=== PATIENT | male | born 1955 | race Two or more races ===

== ENCOUNTER 2017-06-14 04:59 | Inpatient (IN) | payer OTHER ==
[~2017-06-14] VITALS: Ht 175.3 cm; Wt 95.3 kg
[2017-06-14] MEDS ORDERED: CARV3.122 PO (05:19)
[2017-06-14] MEDS ORDERED: LEVO88TA2 PO (05:19)
[2017-06-14] MEDS ORDERED: GABA600T2 PO (05:19)
[2017-06-14] MEDS ORDERED: FAMO-132 PO (05:19)
[2017-06-14] MEDS ORDERED: CHLO25TA2 PO (05:19)
[2017-06-14] MEDS ORDERED: ASPI81TA31 PO (05:19)
[2017-06-14 06:03] LABS: BASOPHILS # (AUTO) 0.1 K/uL (0.0-8.0); BASOPHILS % (AUTO) 0.6 % (0.0-2.0); EOSINOPHILS # (AUTO) 0.1 K/uL (0.0-0.7); EOSINOPHILS % (AUTO) 1.2 % (0.0-7.0); HEMATOCRIT 39.6 % (40-50); HEMOGLOBIN 13.6 G/DL (14.0-18.0); LYMPHOCYTES # (AUTO) 1.4 K/UL (0.8-4.8); LYMPHOCYTES % (AUTO) 14.2 % (20.5-51.5); MEAN CORPUSCULAR HEMOGLOBIN 29.8 UUG (27.0-31.0); MEAN CORPUSCULAR HGB CONC 34 g/dL (32.0-37.0); MEAN CORPUSCULAR VOLUME 86.9 FL (82.0-92.0); MONOCYTES # (AUTO) 0.5 K/UL (0.1-1.30); MONOCYTES % (AUTO) 5.2 % (0.0-11.0); NEUTROPHILS # (AUTO) 7.5 K/UL (1.8-8.9); NEUTROPHILS % (AUTO) 78.8 % (38.5-71.5); PLATELET COUNT (AUTO) 177 K/UL (150-450); RED BLOOD CELL COUNT(AUTO) 4.55 MIL/UL (4.7-6.1); WHITE BLOOD COUNT (AUTO) 9.6 K/UL (4.0-11.2)
--- NOTE | 2017-06-14 06:05 | NUR ---
Patient's laboratory data revealed his glucose as 80, which was decreased from the ACCUCHECK upon arrival. ERMD notified, orders received, half of a sandwich provided to patient.
[2017-06-14 06:07] LABS: POTASSIUM 3.8 mmol/L (3.5-5.1)
[2017-06-14 06:14] LABS: BILIRUBIN,DIRECT 0.2 mg/dL (0.0-0.2); BILIRUBIN,TOTAL 1.2 mg/dL (0.2-1.0); TOTAL PROTEIN, SERUM 7.8 g/dL (6.4-8.2)
[2017-06-14] MEDS ORDERED: IV 10% DEXTROSE 1,000 ML IV PRN (06:30)
[2017-06-14 06:52] LABS: CREATININE 2.8 mg/dL (0.6-1.3)
--- NOTE | 2017-06-14 07:46 | NUR ---
Breakfast provided, pt had moderate appetite.
--- NOTE | 2017-06-14 08:10 | NUR ---
Patient admitted to unit. Patient does not appear to be in any distress, vitals WNL, blood glucose 149.
[2017-06-14 08:15] VITALS: BP 184/93
[2017-06-14] MEDS ORDERED: ONDANSETRON 4 MG/2 ML VIAL IV PRN (10:00)
[2017-06-14] MEDS: CHLORTHALIDONE 25 MG TABLET PO SCH (10:00)
[2017-06-14] MEDS ORDERED: HYDROCODONE/APAP 5-325MG TABLET PO PRN (10:00)
[2017-06-14] MEDS ORDERED: DEXTROSE 50% 50 ML DISP.SYRIN IV PRN (10:00)
[2017-06-14] MEDS ORDERED: LEVOTHYROXINE SODIUM 88 MCG TABLET PO SCH (10:00)
[2017-06-14] MEDS ORDERED: GABAPENTIN 300 MG CAPSULE PO SCH (10:00)
[2017-06-14] MEDS ORDERED: ACETAMINOPHEN 325 MG TABLET PO PRN (10:00)
[2017-06-14] MEDS ORDERED: ZOLPIDEM 5 MG TABLET PO PRN (10:00)
[2017-06-14] MEDS ORDERED: IV D5W 1000ML 1,000 ML IV ONE (10:00)
[2017-06-14 11:21] VITALS: BP 170/94
[2017-06-14] MEDS ORDERED: OMEG1CAP GT (11:28)
[2017-06-14] MEDS ORDERED: INSU500I SQ ×2 (11:28)
[2017-06-14] MEDS ORDERED: LEVO75TA7 PO (11:28)
[2017-06-14] MEDS ORDERED: CARV6.252 PO (11:28)
[2017-06-14] MEDS ORDERED: ASPI-605 PO (11:28)
[2017-06-14] MEDS: ASPIRIN 81 MG TAB.CHEW PO SCH (11:39)
[2017-06-14] MEDS: CARVEDILOL 6.25 MG TABLET PO SCH ×2 (11:39→17:57)
[2017-06-14] MEDS: BLOOD SUGAR DIAGNOSTIC 1 EACH STRIP VI SCH ×3 (11:58→20:32)
--- NOTE | 2017-06-14 13:00 | NUR ---
Patient's medications were reconciled, and it was noted that Insulin from home was 500U/ML. Pharmacy and doctor were notified.
[2017-06-14 15:45] VITALS: BP 164/88
--- NOTE | 2017-06-14 18:58 | NUR ---
Patient is in bed, no evidence of distress noted. BP has been elevated since arrival on unit and physician was notified but only regular medications were continued.
[2017-06-14 20:00] VITALS: BP 183/103
--- NOTE | 2017-06-14 20:00 | NUR ---
Pt received laying in AOx4. pleasant upon approach. IVF running in right arm Addendum: 06/14/17 at 2146 by HARSHAD ARENAS RN in right hand, intact. b/p 183/103 Md was notified, pt given clonidine 0.1mg po prn for sbp >170. Denies any c/o pain. blood sugar 254mg/dl given 6 units regular insulin per sliding scale, no s/s hyperglycemia noted. No acute distress noted. Bed in low and locked position, call light within reach.
[2017-06-14] MEDS: INSULIN REGULAR, HUMAN 300 UNIT/3 ML VIAL SQ PRN (20:33)
[2017-06-14] MEDS: CLONIDINE HCL 0.1 MG TABLET PO PRN (21:28)
[2017-06-14] MEDS ORDERED: CLONIDINE HCL 0.1 MG TABLET ONE (21:39)
[2017-06-14 23:11] VITALS: BP 158/76
[2017-06-15] MEDS: INSULIN REGULAR, HUMAN 300 UNIT/3 ML VIAL SQ PRN ×3 (00:50→20:23)
[2017-06-15] MEDS: BLOOD SUGAR DIAGNOSTIC 1 EACH STRIP VI SCH ×6 (00:51→20:13)
[2017-06-15 05:00] VITALS: BP 130/84
[2017-06-15 06:33] LABS: BASOPHILS # (AUTO) 0.1 K/uL (0.0-8.0); BASOPHILS % (AUTO) 0.8 % (0.0-2.0); EOSINOPHILS # (AUTO) 0.6 K/uL (0.0-0.7); HEMOGLOBIN 11.8 G/DL (14.0-18.0); LYMPHOCYTES % (AUTO) 31.3 % (20.5-51.5); MEAN CORPUSCULAR HEMOGLOBIN 29.7 UUG (27.0-31.0); MEAN CORPUSCULAR HGB CONC 34 g/dL (32.0-37.0); MEAN CORPUSCULAR VOLUME 87.9 FL (82.0-92.0); MONOCYTES # (AUTO) 0.6 K/UL (0.1-1.30); MONOCYTES % (AUTO) 6.5 % (0.0-11.0); NEUTROPHILS # (AUTO) 5.2 K/UL (1.8-8.9); NEUTROPHILS % (AUTO) 55.4 % (38.5-71.5); PLATELET COUNT (AUTO) 152 K/UL (150-450); WHITE BLOOD COUNT (AUTO) 9.5 K/UL (4.0-11.2)
[2017-06-15] MEDS: PANTOPRAZOLE SODIUM 40 MG TABLET.DR PO SCH (06:36)
[2017-06-15] MEDS: LEVOTHYROXINE SODIUM 75 MCG TABLET PO SCH (06:37)
[2017-06-15 06:39] LABS: HEMATOCRIT 34.8 % (40-50); RED BLOOD CELL COUNT(AUTO) 3.96 MIL/UL (4.7-6.1)
[2017-06-15 07:01] LABS: THYROID STIMULATING HORMONE 3.473 mIU/mL (0.358-3.740)
--- NOTE | 2017-06-15 07:10 | NUR ---
RECEIVED REPORT FROM SHIPPING CLERK PACKING NURSE, PATIENT IN BED AWAKE, NO EVIDENCE OF DISTRESS NOTED, BED IN LOW POSITION, SIDE RAILS UP X2.
[2017-06-15 07:33] LABS: CREATININE 2.7 mg/dL (0.6-1.3); MAGNESIUM 1.4 mg/dL (1.8-2.4); POTASSIUM 4.1 mmol/L (3.5-5.1)
[2017-06-15] MEDS: GABAPENTIN 300 MG CAPSULE PO SCH (08:00)
[2017-06-15] MEDS: ASPIRIN 81 MG TAB.CHEW PO SCH (08:00)
[2017-06-15] MEDS: CARVEDILOL 6.25 MG TABLET PO SCH ×2 (08:00→18:47)
[2017-06-15] MEDS: CHLORTHALIDONE 25 MG TABLET PO SCH (08:01)
[2017-06-15 11:57] VITALS: BP 172/94
[2017-06-15] MEDS: CLONIDINE HCL 0.1 MG TABLET PO PRN ×2 (12:16→20:24)
[2017-06-15 15:39] VITALS: BP 151/79
--- NOTE | 2017-06-15 18:48 | NUR ---
PATIENT WAS IN BED MOST OF THE DAY, NO EVIDENCE OF DISTRESS NOTED. BLOOD SUGAR LEVELS WERE FAIRLY STABLE, BP WAS IN HIGH 160'S-180'S SYSTOLIC. CLONIDINE ADMINISTERED TO PATIENT FOR BP ABOVE 170 SYSTOLIC. NO PAIN REPORTED, NO SOB, NO OUTWARD EVIDENCE OF DISTRESS NOTED IN PATIENT.
[2017-06-15 20:00] VITALS: BP 183/91
--- NOTE | 2017-06-15 20:00 | NUR ---
RECEIVED PATIENT AWAKE IN BED. A/O X4. ETHIOPIAN SPEAKING BUT SPEAKS MINIMAL COLOMBIAN AND ABLE TO MAKE NEEDS KNOWN AND VERBALIZES UNDERSTANDING. DENIES PAIN OR DISCOMFORT. NO RESP. DISTRESS NOTED. H/L INTACT AND PATENT. CALL LIGHT IN REACH. ALL NEEDS ATTENDED. WILL CONTINUE TO MONITOR AND ASSESS.
--- NOTE | 2017-06-15 20:35 | NUR ---
PATIENTS BLOOD PRESSURE 183/91. ALL OTHER VSS. PATIENT DENIES ANY CHEST PAIN OR DISCOMFORT. PATIENT GIVEN CLONIDINE 0.1MG PO PRN FOR ELEVATED BP. WILL CONTINUE TO MONITOR AND ASSESS.
--- NOTE | 2017-06-15 22:00 | NUR ---
BLOOD PRESSURE SLOWLY TRENDING DOWN. WILL CONTINUE TO MONITOR AND ASSESS.
[2017-06-16] MEDS: BLOOD SUGAR DIAGNOSTIC 1 EACH STRIP VI SCH ×4 (00:04→12:00)
[2017-06-16] MEDS: INSULIN REGULAR, HUMAN 300 UNIT/3 ML VIAL SQ PRN (04:27)
[2017-06-16 05:00] VITALS: BP 167/90
--- NOTE | 2017-06-16 05:44 | NUR ---
PATIENT RESTING IN BED. SLEPT WELL THROUGHOUT THE NIGHT. BP 167/90. ALL OTHER VSS. PRN CLONIDINE IS ORDERED FOR BP OVER 170. WILL CONTINUE TO MONITOR AND ASSESS BLOOD PRESSURE. DENIES CHEST PAIN OR ANY OTHER DISCOMFORT. PATIENT IS ASYMPTOMATIC. CALL LIGHT IN REACH. ALL NEEDS ATTENDED. WILL CONTINUE TO MONITOR AND ASSESS.
[2017-06-16] MEDS: LEVOTHYROXINE SODIUM 75 MCG TABLET PO SCH (06:26)
[2017-06-16] MEDS: PANTOPRAZOLE SODIUM 40 MG TABLET.DR PO SCH (06:26)
[2017-06-16 06:37] LABS: BILIRUBIN,TOTAL 1.1 mg/dL (0.2-1.0); CREATININE 2.9 mg/dL (0.6-1.3); MAGNESIUM 1.6 mg/dL (1.8-2.4); PHOSPHOROUS 4.4 mg/dL (2.5-4.9); POTASSIUM 4.2 mmol/L (3.5-5.1); TOTAL PROTEIN, SERUM 6.6 g/dL (6.4-8.2)
[2017-06-16 06:41] LABS: BASOPHILS # (AUTO) 0.1 K/uL (0.0-8.0); BASOPHILS % (AUTO) 0.8 % (0.0-2.0); EOSINOPHILS # (AUTO) 0.5 K/uL (0.0-0.7); EOSINOPHILS % (AUTO) 5.4 % (0.0-7.0); HEMATOCRIT 33.3 % (40-50); HEMOGLOBIN 11.3 G/DL (14.0-18.0); LYMPHOCYTES # (AUTO) 2.9 K/UL (0.8-4.8); LYMPHOCYTES % (AUTO) 32.4 % (20.5-51.5); MEAN CORPUSCULAR HEMOGLOBIN 29.8 UUG (27.0-31.0); MEAN CORPUSCULAR HGB CONC 34 g/dL (32.0-37.0); MEAN CORPUSCULAR VOLUME 87.8 FL (82.0-92.0); MONOCYTES # (AUTO) 0.6 K/UL (0.1-1.30); MONOCYTES % (AUTO) 6.5 % (0.0-11.0); NEUTROPHILS # (AUTO) 4.8 K/UL (1.8-8.9); NEUTROPHILS % (AUTO) 54.9 % (38.5-71.5); PLATELET COUNT (AUTO) 151 K/UL (150-450); RED BLOOD CELL COUNT(AUTO) 3.79 MIL/UL (4.7-6.1); WHITE BLOOD COUNT (AUTO) 8.9 K/UL (4.0-11.2)
--- NOTE | 2017-06-16 06:46 | NUR ---
URINE COLLECTED AND SENT TO THE LAB ORDERED.
--- NOTE | 2017-06-16 07:25 | NUR ---
RECEIVED REPORT FROM TANK STAVE ASSEMBLER NURSE, PATIENT IN BED AWAKE, NO EVIDENCE OF DISTRESS NOTED. BED IN LOW POSITION, SIDE RAILS UP X2.
[2017-06-16] MEDS: ASPIRIN 81 MG TAB.CHEW PO SCH (08:16)
[2017-06-16] MEDS: GABAPENTIN 300 MG CAPSULE PO SCH (08:16)
[2017-06-16] MEDS: CARVEDILOL 6.25 MG TABLET PO SCH (08:16)
[2017-06-16] MEDS ORDERED: AMLODIPINE 5 MG TABLET PO SCH (09:00)
[2017-06-16 09:08] LABS: A/G RATIO 1.1 (0.7-1.7); ALBUMIN 3.2 g/dL (2.9-4.4); ALPHA-1-GLOBULIN 0.2 g/dL (0.0-0.4); ALPHA-2-GLOBULIN 0.8 g/dL (0.4-1.0); BETA GLOBULIN 0.9 g/dL (0.7-1.3); GLOBULIN, TOTAL 2.8 g/dL (2.2-3.9); M-SPIKE Not Observed g/dL (Not Observed)
[2017-06-16 09:35] LABS: *BILIRUBIN,URIN NEGATIVE (NEGATIVE); *BLOOD, URINE 1+ (NEGATIVE); *CLARITY,URINE CLEAR (CLEAR); *COLOR,URINE YELLOW (YELLOW); *KETONES,URINE NEGATIVE (NEGATIVE); *UROBILINOGEN,URINE 0.2 E.U./dl (NORMAL); LEUKOCYTE ESTERASE ,URINE NEGATIVE (NEGATIVE); NITRITE, URINE NEGATIVE (NEGATIVE); PH,URINE 6.5 (5.0-8.0); UGLUCOSE TRACE (NEGATIVE)
[2017-06-16 09:55] LABS: *CREATININE,URINE 44.1 mg/dL (30-125); *URINE TOTAL PROTEIN RANDOM 189.5 mg/dL (<150/24HR)
[2017-06-16 10:24] LABS: *PROTEIN,URINE 3+ (NEGATIVE)
[2017-06-16 10:26] LABS: BACTERIA,URINE NONE SEEN /HPF (NONE SEEN); SQUAMOUS EPITHELIAL CELL,UR FEW /HPF (NONE SEEN); WBC,URINE 0-3 /HPF (0-3)
[2017-06-16 11:30] VITALS: BP 199/99
[2017-06-16 13:15] VITALS: BP 199/90
[2017-06-16] MEDS: CLONIDINE HCL 0.1 MG TABLET PO PRN (13:15)
--- NOTE | 2017-06-16 13:15 | NUR ---
PATIENTS IV WAS REMOVED, DISCHARGE INSTRUCTIONS REVIEWED, ALL QUESTIONS ANSWERED, AND PATIENT WAS WHEELED TO DAUGHTERS VEHICLE AT FRONT ENTRANCE.
== END 2017-06-16 13:20 | disposition home or self-care (01) | DRG 420 ==
LOC: ER 05:05 → MED 07:42
DX: E11.649 Type 2 diabetes mellitus with hypoglycemia without coma (principal); N17.0 Acute kidney failure with tubular necrosis; G93.41 Metabolic encephalopathy; N18.4 Chronic kidney disease, stage 4 (severe); E11.22 Type 2 diabetes mellitus with diabetic chronic kidney disease; E03.9 Hypothyroidism, unspecified; E78.5 Hyperlipidemia, unspecified; I10 Essential (primary) hypertension; I12.9 Hypertensive chronic kidney disease with stage 1 through stage 4 chronic kidney disease, or unspecified chronic kidney disease; Z79.4 Long term (current) use of insulin
CPT/HCPCS: 36415; 70030-TC; 70450; 71010; 76770; 83605; 83735; 84100; 84155; 84156; 84165; 84300; 84443; 85025; 87040; 93005; A4663; J1815; J3490; J7070